=== PATIENT | female | born 1995 | race Two or more races ===

== ENCOUNTER 2019-02-19 20:08 | Emergency (ER) | payer OTHER ==
[~2019-02-19] VITALS: Ht 165.1 cm; Wt 86.2 kg
[2019-02-19 20:10] VITALS: Ht 165.1 cm; Wt 86.2 kg
[2019-02-19 21:47] VITALS: BP 121/70
== END 2019-02-19 21:47 | disposition home or self-care (01) ==
LOC: ED 20:08
DX: G43.909 Migraine, unspecified, not intractable, without status migrainosus (principal); R11.2 Nausea with vomiting, unspecified
CPT/HCPCS: J0780; J1885; J7030